=== PATIENT | male | born 1960 | race Caucasian/White ===

== ENCOUNTER 2017-01-06 14:57 | Emergency (ER) | payer SELFPAY ==
[~2017-01-06] VITALS: Ht 175.3 cm; Wt 62.0 kg
[~2017-01-06 14:57] MED LIST: AMLO5TAB4 PO; AMOX1TAB12 PO; AMOX1TAB61 PO; DOCU-30 PO; LACT1CAP24 PO; LISI-170 PO; METO25TA35 PO; NICO1PAT5 TD; OXYC1TAB7 PO; POLY10DR3 RIGHTEYE; SULF1TAB3 PO
[2017-01-06] MEDS ORDERED: KETOROLAC 30 MG/1 ML ONE (15:20)
[2017-01-06] MEDS ORDERED: DIPH,PERTUSS(ACELL),TET VAC/PF 0.5 ML IM-VACC ONE ×2 (15:21→15:30)
[2017-01-06] MEDS ORDERED: KETOROLAC 30 MG/1 ML IM ONE (15:30)
[2017-01-06] MEDS ORDERED: PLEASE ENTER HEIGHT AND WEIGHT MC SCH (15:30)
[2017-01-06] MEDS ORDERED: BACITRACIN ZINC OINT 500U/GM, 0.9 GM ONE (17:23)
[2017-01-06 17:50] VITALS: BP 154/86
== END 2017-01-06 17:52 | disposition home or self-care (01) ==
LOC: ED 17:46
DX: S22.42XA Multiple fractures of ribs, left side, initial encounter for closed fracture (principal); S02.40FA Zygomatic fracture, left side, initial encounter for closed fracture; S02.2XXA Fracture of nasal bones, initial encounter for closed fracture; Z23 Encounter for immunization; I10 Essential (primary) hypertension; F17.210 Nicotine dependence, cigarettes, uncomplicated; Y04.0XXA Assault by unarmed brawl or fight, initial encounter; Y93.89 Activity, other specified; Y99.8 Other external cause status; Y92.89 Other specified places as the place of occurrence of the external cause
CPT/HCPCS: 70450; 70486; 71101; 72125; 90471; 90715; 96372; 99284; J1885

== ENCOUNTER 2017-01-19 14:04 | Emergency (ER) | payer SELFPAY ==
[~2017-01-19] VITALS: Ht 175.3 cm; Wt 63.0 kg
[2017-01-19 14:12] VITALS: BP 108/68
[2017-01-19] MEDS ORDERED: IBUPROFEN 200 MG TABLET ONE (15:18)
[2017-01-19] MEDS ORDERED: IBUPROFEN 200 MG TABLET PO ONE (15:30)
== END 2017-01-19 15:24 | disposition home or self-care (01) ==
LOC: ED 15:18
DX: S93.491A Sprain of other ligament of right ankle, initial encounter (principal); X58.XXXA Exposure to other specified factors, initial encounter; Y93.89 Activity, other specified; Y99.8 Other external cause status; Y92.89 Other specified places as the place of occurrence of the external cause
CPT/HCPCS: 99284

== ENCOUNTER 2017-02-20 00:37 | Emergency (ER) | payer SELFPAY ==
[~2017-02-20] VITALS: Ht 170.2 cm; Wt 70.0 kg
[2017-02-20] MEDS ORDERED: METOCLOPRAMIDE 5 MG/ML, 2ML ONE (02:59)
[2017-02-20] MEDS ORDERED: SODIUM CHLORIDE 0.9% 1,000ML IVBOLUS ONE (03:00)
[2017-02-20] MEDS ORDERED: DIPHENHYDRAMINE 50 MG/ML, 1ML ONE (03:00)
[2017-02-20] MEDS ORDERED: DIPHENHYDRAMINE 50 MG/ML, 1ML IVPush ONE (03:00)
[2017-02-20] MEDS ORDERED: METOCLOPRAMIDE 5 MG/ML, 2ML IVPush ONE (03:00)
[2017-02-20 03:31] LABS: BLOOD UREA NITROGEN 14 mg/dL (7-18)
[2017-02-20 03:33] LABS: DAU SCREEN DISCLAIMER
[2017-02-20] MEDS ORDERED: POTASSIUM CHLORIDE 20 MEQ TAB.ER.PRT ONE (03:39)
[2017-02-20] MEDS ORDERED: POTASSIUM CHLORIDE 20 MEQ TAB.ER.PRT PO ONE (04:00)
[2017-02-20 04:32] VITALS: BP 119/63
== END 2017-02-20 05:17 | disposition home or self-care (01) ==
LOC: ED 02:40
DX: R51 Headache (principal); G43.909 Migraine, unspecified, not intractable, without status migrainosus; F10.220 Alcohol dependence with intoxication, uncomplicated; F12.20 Cannabis dependence, uncomplicated; F15.20 Other stimulant dependence, uncomplicated; I10 Essential (primary) hypertension; Z88.5 Allergy status to narcotic agent
CPT/HCPCS: 36415; 70450; 80048; 80307; 82040; 85025; 96361; 96374; 96375; 99285; J1200; J2765; J7030

== ENCOUNTER 2017-02-24 17:05 | Emergency (ER) | payer MEDICAID ==
[~2017-02-24] VITALS: Ht 175.3 cm; Wt 64.0 kg
[2017-02-24 17:14] VITALS: BP 103/55
== END 2017-02-24 18:23 | disposition left against medical advice (07) ==
LOC: ED 18:17
DX: F10.129 Alcohol abuse with intoxication, unspecified (principal); Z53.21 Procedure and treatment not carried out due to patient leaving prior to being seen by health care provider

== ENCOUNTER 2017-02-26 12:44 | Emergency (ER) | payer MEDICAID ==
[~2017-02-26] VITALS: Ht 175.3 cm; Wt 60.0 kg
[2017-02-26 12:51] VITALS: BP 151/74
[2017-02-26 13:42] LABS: ASPARTATE AMINO TRANSFERASE 402 U/L (15-37); BLOOD UREA NITROGEN 15 mg/dL (7-18)
[2017-02-26 14:26] LABS: DIFF TOTAL CELLS COUNTED 100 CELL DIFF
[2017-02-26 14:28] LABS: VERIFY COUNTS? YES
== END 2017-02-26 14:33 | disposition home or self-care (01) ==
LOC: ED 12:45
DX: R10.84 Generalized abdominal pain (principal); F10.229 Alcohol dependence with intoxication, unspecified; I10 Essential (primary) hypertension
CPT/HCPCS: 36415; 74020; 80053; 80307; 83690; 85025

== ENCOUNTER 2019-10-23 16:29 | Emergency (ER) | payer MEDICAID, OTHER ==
[~2019-10-23] VITALS: Ht 175.3 cm; Wt 70.0 kg
[~2019-10-23 16:29] MED LIST changes: +DOCU-131 PO; -DOCU-30 PO; +NICO-487 TD; -NICO1PAT5 TD; +SULF-169 PO; -SULF1TAB3 PO
--- NOTE | 2019-10-23 16:57 | NUR ---
PT IN HOSPITAL GOWN. PT ON VITALS MONITORS. ALL CLOTHING REMOVED, PT PLACED IN HOSPITAL GOWN. BILAT BEDRAILS UP. CALL LIGHT WITHIN REACH.
[2019-10-23] MEDS ORDERED: DIPH,PERTUSS(ACELL),TET VAC/PF 0.5 ML IM-VACC ONE (18:00)
[2019-10-23 18:12] LABS: BASOPHILS # (AUTO) 0.05 x10^3/uL (0-0.1); BASOPHILS % (AUTO) 1 % (0-1); EOSINOPHILS # (AUTO) 0.18 x10^3/uL (0-0.4); EOSINOPHILS % (AUTO) 2 % (1-7); LYMPHOCYTES # (AUTO) 2.08 x10^3/uL (1-3.4); LYMPHOCYTES % (AUTO) 25 % (22-44); MD NO; MEAN CORPUSCULAR HEMOGLOBIN 29.1 pg (27.5-34.5); MEAN CORPUSCULAR HGB CONC 32.9 g/dL (33.2-36.2); MEAN CORPUSCULAR VOLUME 88.4 fL (81-97); MEAN PLATELET VOLUME 7.4 fL (7.4-10.4); MONOCYTES # (AUTO) 0.41 x10^3/uL (0.2-0.8); MONOCYTES % (AUTO) 5 % (2-9); NEUTROPHILS % (AUTO) 67 % (42-75); PLATELET COUNT 321 x10^3/uL (130-400); RED BLOOD COUNT 5.21 x10^6/uL (4.38-5.82); RED CELL DISTRIBUTION WIDTH 15.6 % (9.4-14.8)
[2019-10-23 18:19] LABS: ALBUMIN 3.6 g/dL (3.4-5.0); ANION GAP 12 mmol/L (5-15); CALCIUM 8.8 mg/dL (8.5-10.1); CHLORIDE 110 mmol/L (98-107); CREATININE 0.85 mg/dL (0.7-1.3)
[2019-10-23 19:05] VITALS: BP 97/55
--- NOTE | 2019-10-23 19:30 | NUR ---
REPORT RECEIVED FROM NARENDRA BARCLAY. PLAN OF CARE DISCUSSED.
[2019-10-23] MEDS ORDERED: NEOSPORIN OINT. PKT 1 PACKET ONE (19:46)
--- NOTE | 2019-10-23 20:05 | NUR ---
NOSE CLEANED BY AUDIO RECORDING ENGINEER. PIV REMOVED, PATIENT INSTRUCTED TO GET DRESSED
--- NOTE | 2019-10-23 20:17 | NUR ---
Patient given discharge instructions and they have confirmed that they understand the instructions. Patient ambulatory with steady gait.
== END 2019-10-23 20:19 | disposition home or self-care (01) ==
LOC: ED 17:29
DX: S00.31XA Abrasion of nose, initial encounter (principal); S09.90XA Unspecified injury of head, initial encounter; F10.229 Alcohol dependence with intoxication, unspecified; W01.0XXA Fall on same level from slipping, tripping and stumbling without subsequent striking against object, initial encounter; Y93.89 Activity, other specified; Y92.488 Other paved roadways as the place of occurrence of the external cause; Y99.8 Other external cause status; Y90.0 Blood alcohol level of less than 20 mg/100 ml
CPT/HCPCS: 36415; 70160; 70450; 80048; 80307; 82040; 85025; 99285

== ENCOUNTER 2020-01-30 07:37 | Emergency (ER) | payer MEDICAID ==
[~2020-01-30] VITALS: Ht 175.3 cm; Wt 72.7 kg
[2020-01-30 07:42] VITALS: BP 164/89
[2020-01-30] MEDS ORDERED: DIPHENHYDRAMINE 25 MG CAPSULE PO ONE (08:00)
[2020-01-30] MEDS ORDERED: PERMETHRIN CRM 5%, 60GM TP SCH (08:00)
[2020-01-30] MEDS ORDERED: PLEASE ENTER HEIGHT AND WEIGHT MC SCH (08:00)
[2020-01-30] MEDS ORDERED: DIPHENHYDRAMINE 50 MG CAPSULE ONE (08:02)
--- NOTE | 2020-01-30 08:08 | NUR ---
BIB [facility] FOR C/O BODY RASH/ITCHING X3 WEEKS-3 MONTHS PT UNSURE OF TIMELINE. PT ALSO STATES HE HAS CHRONIC PAIN. RECENTLY GOT TAKEN OFF VICODIN MEDICATIONS. PT PLACED ON SPECIAL CONTACT PRECAUTIONS. PT RESTING ON GURNEY. RESTLESS IN BED. MEDICATED PER OCT. YELLOW SLIP SENT TO PHARMACY FOR CREAM.
--- NOTE | 2020-01-30 08:42 | NUR ---
PT APPLIED CREAM THROUGHOUT BODY. THIS RN ASSISTED IN APPLYING CREAM TO BACK. PT PROVIDED W/ BUS PASS AND MEDICATION ASSISTANCE RESOURCES FOR CREAM RX.
== END 2020-01-30 08:44 | disposition home or self-care (01) ==
LOC: ED 07:59
DX: B86 Scabies (principal); R21 Rash and other nonspecific skin eruption; I10 Essential (primary) hypertension
CPT/HCPCS: 99283; Q0163

== ENCOUNTER 2020-11-11 18:10 | Emergency (ER) | payer MEDICAID ==
[~2020-11-11] VITALS: Ht 175.3 cm; Wt 65.6 kg
[~2020-11-11 18:10] MED LIST changes: -NICO-487 TD; +NICO-587 TD
[2020-11-11 18:13] VITALS: BP 96/54
--- NOTE | 2020-11-11 18:59 | NUR ---
ASSUMED CARE OF PT FROM NARENDRA SHARMA AT THIS TIME. PT RESTING IN [facility] [place] AT THIS TIME, BERNIE.
[2020-11-11] MEDS ORDERED: KETOROLAC 30 MG/1 ML ONE (20:10)
[2020-11-11] MEDS ORDERED: KETOROLAC 30 MG/1 ML IM ONE (20:30)
--- NOTE | 2020-11-11 20:57 | NUR ---
PT ELOPED PRIOR TO APPLICATION OF SLING OR TEACHING OF DISCHARGE PAPERWORK/EDUCATION .
== END 2020-11-11 20:59 | disposition left against medical advice (07) ==
LOC: ED 20:15
DX: S22.41XA Multiple fractures of ribs, right side, initial encounter for closed fracture (principal); S46.911A Strain of unspecified muscle, fascia and tendon at shoulder and upper arm level, right arm, initial encounter; S09.90XA Unspecified injury of head, initial encounter; I10 Essential (primary) hypertension; W18.30XA Fall on same level, unspecified, initial encounter; Y93.89 Activity, other specified; Y92.410 Unspecified street and highway as the place of occurrence of the external cause; Y99.8 Other external cause status
CPT/HCPCS: 70450; 71250; 73030; 96372; 99285; J1885